=== PATIENT | female | born 2000 | race Caucasian/White ===

== ENCOUNTER 2021-12-05 05:37 | Outpatient (CLI) | payer OTHER ==
[~2021-12-05] VITALS: Ht 160 cm; Wt 61.4 kg
== END 2021-12-06 15:03 | disposition home or self-care (01) ==
LOC: PREOP 05:37
PROVIDERS: ATTEND Specialist
DX: Z01.818 Encounter for other preprocedural examination (principal)

== ENCOUNTER 2021-12-09 11:32 | Day surgery (SDC) | payer OTHER ==
[2021-12-09] VITALS (12 sets, daily range): BP systolic 98–106; BP diastolic 59–79
[~2021-12-09] VITALS: Ht 160 cm; Wt 61.4 kg
[2021-12-09] MEDS ORDERED: ceFAZolin 2 GM IV Premixed 50 ML IV ONE (12:00)
[2021-12-09] MEDS ORDERED: fentaNYL INJ 100 MCG/2 ML AMP ONE (12:07)
[2021-12-09] MEDS ORDERED: MIDAZOLAM 2 MG/2 ML (VERSED) VIAL ONE (12:07)
[2021-12-09] MEDS ORDERED: proPOfol 200 MG/20 ML (DIPRIVAN) VIAL IV ONE (12:07)
[2021-12-09] MEDS ORDERED: LIDOCAINE PF 2% 5 ML (XYLOCAINE) VIAL ONE (12:07)
[2021-12-09] MEDS ORDERED: ROCURONIUM 10 MG/ML 5 ML SYRINGE IV ONE (12:07)
[2021-12-09] MEDS: LACTATED RINGERS 1,000 ML IV PRN ×3 (12:10→16:12)
[2021-12-09] MEDS ORDERED: BACITRACIN OINTMENT 28 GM TUBE ONE (12:45)
[2021-12-09] MEDS ORDERED: LIDOCAINE/EPI 2% 1:100,00 (XYLOCAINE) 20 ML VIAL ONE (12:45)
[2021-12-09] MEDS ORDERED: BSS 15 ML ONE (12:45)
[2021-12-09] MEDS ORDERED: PHENYLEPHRINE 0.5% NASAL SPR (NEO-SYNEPHRINE) REG ONE (12:45)
[2021-12-09] MEDS ORDERED: GLYCOPYRROLATE 0.2 MG/ML (ROBINUL) 2 ML VIAL ONE (15:20)
[2021-12-09] MEDS ORDERED: SEVOFLURANE (ULTANE) 15 ML INHAL SOLN ONE (15:20)
[2021-12-09] MEDS ORDERED: ROPIVACAINE 5MG/ML 30ML VIAL ONE (15:32)
[2021-12-09] MEDS ORDERED: NEOSTIGMINE 3 MG/3 ML VIAL ONE (15:36)
[2021-12-09] MEDS ORDERED: ONDANSETRON 4 MG/2 ML (SDV) Z0FRAN IVP PRN (15:45)
[2021-12-09] MEDS ORDERED: HYDROmorphone 2 MG/ML VIAL (DILAUDID) IV ONE (15:45)
--- NOTE | 2021-12-09 16:08 | Anesthesia-General Post-Op ---
General Patient Condition Mental Status/LOC: Same as Preop Cardiovascular: Satisfactory Nausea/Vomiting: Absent Respiratory: Satisfactory Pain: Controlled Complications: Absent Post Op Complications Complications None Follow Up Care/Instructions Patient Instructions None needed. Anesthesia/Patient Condition Patient Condition Patient is doing well, no complaints, stable vital signs, no apparent adverse anesthesia problems. No complications reported per nursing. D/C home per [facility] Criteria: Yes JING ROMERO CRNA Dec 09, 2021 16:08
[2021-12-09] MEDS ORDERED: HYDROcodone/APAP 5 MG/325 MG (LORTAB) TAB PO ONE (17:00)
[2021-12-09] MEDS ORDERED: HYDROcodone/APAP 5 MG/325 MG (LORTAB) TAB ONE (17:03)
--- NOTE | 2021-12-29 09:39 | OPERATIVE REPORT ---
DATE OF SERVICE: 12/09/2021 SURGEON: Tyron Kamara DDS FLIGHT MECHANIC: Annette ____. ANESTHESIA: General endotracheal. COMPLICATIONS: There were no complications. FLUIDS: 1300 mL of crystalloid. BLOOD LOSS: 200 mL. COUNTS: Instrument, needle and sponge count were correct x2. PREOPERATIVE DIAGNOSES: 1. Deviated nasal septum, status post trauma. 2. Depressed and displaced nasal bone fracture, status post trauma. POSTOPERATIVE DIAGNOSES: 1. Deviated nasal septum, status post trauma. 2. Depressed and displaced nasal bone fracture, status post trauma. PROCEDURES: 1. Open septorhinoplasty. 2. Osteotomy of the nasal bones with realignment. HISTORY OF PRESENT ILLNESS AND INDICATION FOR PROCEDURE: The patient is a 21-year-old otherwise healthy white female who presents to my clinic. 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 At the time of injury, she did not seek treatment due to the fact it was in the season. Subsequently, she is no longer playing softball and after being examined and at this point stating her difficulty breathing particularly of her right naris, which had a displaced fracture, which has subsequently healed since her injury, which was approximately somewhere around a year ago. Then, we also performed a CT scan, which she indeed have also a deviated septum and also depressed nasal fracture of the nasal bones as well as displacement of her right nasal bones. After speaking with her extensively, I advised her we would have to do nasal osteotomies bilaterally as well as doing an open septoplasty to mobilize the junction of the cartilaginous and bony septum. Then repositioned her nasal bones as they had been mobilized after the osteotomy and then we would place a splint in both internal and external. I advised her I do not think we have to have any hardware placed. DESCRIPTION OF PROCEDURE: The patient was taken to the operating room and placed on the operatory table. The appropriate monitors were placed, and anesthesia was induced via orotracheal intubation without difficulty. Once this was secured, the surgeon left the room, scrubbed, returned, donned sterile gown and gloves and then the patient was prepped and draped in the usual standard sterile fashion. After this, we placed some Nitish-Synephrine gauze strips bilaterally in both nares for approximately 3-4 minutes to aid in vasoconstriction. It should also be noted that she also had bilateral turbinate hypertrophy, particularly on the left side, which was decided ____ ____ at that time in an effort to compensate for the decreased nasal flow through the right naris. So after this, the Nitish-Synephrine also aided in some vasoconstriction of the turbinate hypertrophy. We then deposited local anesthesia, which was 2% lidocaine with 1:200,000 epinephrine in around the nasal bones both extranasally and intranasally. We also deposited a small amount of lidocaine at the junction of the cartilaginous and bony septum. After this allowed to take effect, I was then able to use nasal speculum to identify the nasal bones and then made an intracartilaginous incision between the upper and lower lateral cartilages down through the mucosa and then onto the piriform rim and then dissected subperiosteally small approximately 5 mm lateral to the piriform rim and then on the medial aspect as well. This was completed bilaterally. Then, I used a #15 blade to excise a mucosal incision stopping at the level of the cartilage and then dissected subperiosteally with a freer elevator back to the bony junction of the cartilaginous and bony septum and this was completed from the floor of the nose up to the upper aspect of the septum. Once this was completed, we had adequate access on both sides. I used an osteotome to create an osteotomy extending up the lateral aspect of the piriform rim starting at the aperture of the piriform rim extending up approximately 2.5 cm bilaterally. I then used a Boies elevator to go inside her septal incision and making sure we had freed up the cartilage and all the way to the internal roof of the nose. Then, I was using another Boies elevator. At this point, I was able to mobilize and outfracture the depressed nasal bones and then also mobilized the bones that had been displaced laterally. After this, I used Boies elevator to position in the midline. Once this was secured, we checked for alignment, then entered and corrected her septal deviation. This was completed by using both the main cutting rongeur and a [place] elevator to mobilize the cartilage and then reposition it on the nasal or at the mid palatal crest and then making sure that we had corrected deviation and any excessive tissue was removed with the main cutting rongeur and alligator clamp. After this, we copiously irrigated with normal saline and then used Bovie electrocautery to perform diathermy bilaterally on her inferior nasal turbinates, which were hypertrophied and this was completed. We then checked for making sure we had adequate hemostasis and then closed our incisions with 4-0 chromic in an interrupted fashion, approximately two sutures on the piriform rim site bilaterally and then two sutures on the septal incision. After this, we placed Quinonez splints bilaterally intranasally and these were sutured to the columella with 2-0 Prolene and then we placed an Aquaplast thermal splint externally to maintain our reconstructive anatomy and making sure that the ____ was indeed straight and down the midline. This completed our procedure. The patient was emerged from her anesthetic. She was then extubated in the operating room after breathing spontaneously and then she was transported to the recovery room, assessed to have stable vital signs, breathing spontaneously with a pulse ox of 99%. Job ID: [id number] DocumentID: [id number] Dictated Date: 12/28/2021 23:17:48 Medical Records Tech Date: 12/29/2021 03:32:41 Dictated By: TYRON KAMARA DDS
== END 2021-12-09 17:45 ==
LOC: SDC 11:32
PROVIDERS: ATTEND Specialist
DX: J34.2 Deviated nasal septum (principal); S02.2XXA Fracture of nasal bones, initial encounter for closed fracture
CPT/HCPCS: 84703; 87081